=== PATIENT | male | born 1960 | race Caucasian/White ===

== ENCOUNTER 2019-08-21 22:10 | Emergency (ER) | payer BC, OTHER ==
[~2019-08-21] VITALS: Ht 182.9 cm; Wt 135.6 kg
--- NOTE | 2019-08-21 22:14 | NUR ---
PT TAKEN TO BED 3
[2019-08-21 22:15] VITALS: BP 129/92
[2019-08-21] MEDS ORDERED: ACETAMIN/CODEINE 120/12MG-5ML 5 ML UDC PO ONE (22:30)
--- NOTE | 2019-08-21 22:41 | NUR ---
PT ASSESSMENT COMPLETE. PT SEATED IN BEDSIDE CHAIR. PT FOUND EATING PEANUTS AT BEDSIDE. PT INFORMED THAT WITH HIS CC OF COUGHING OF BLOOD THAT HE SHOULD NOT BE CONSUMING FOOD AT THIS TIME. PT ACKKNOWLEDGED BUT CONTINUED EATING. ERMD MADE AWARE.
--- NOTE | 2019-08-21 22:48 | NUR ---
X-Ray at bedside.
--- NOTE | 2019-08-22 00:15 | NUR ---
PT SEATED IN BED. NO COUGHING AT THIS TIME. WILL CONTINUD TO MONITOR,.
--- NOTE | 2019-08-22 00:30 | NUR ---
DR. SANTANA AT BEDSIDE TO EXPALIN CT RESULTS TO PT.
[2019-08-22 00:38] VITALS: BP 113/86
--- NOTE | 2019-08-22 00:40 | NUR ---
Patient discharged with v/s stable. Written and verbal after care instructions given and explained. Patient alert, oriented and verbalized understanding of instructions. Ambulatory with steady gait. All questions addressed prior to discharge. ID band removed. Patient advised to follow up with PMD. Rx of PREDNISONE AND GUAIATUSSIN given. Patient educated on indication of medication including possible reaction and side effects. Opportunity to ask questions provided and answered.
== END 2019-08-22 00:40 | disposition home or self-care (01) ==
LOC: MED 22:10
DX: J20.9 Acute bronchitis, unspecified (principal); R04.2 Hemoptysis
CPT/HCPCS: 71045; 71250; 99284; Q0092